=== PATIENT | female | born 1970 | race Caucasian/White ===

== ENCOUNTER 2018-04-06 10:01 | Inpatient (IN) | payer BC, OTHER ==
[~2018-04-06] VITALS: Ht 170.2 cm; Wt 61.7 kg
[2018-04-06 13:47] VITALS: BP 111/57
[2018-04-06 14:14] LABS: *AMPHETAMINE, URINE NEGATIVE (NEGATIVE); *BARBITURATE, URINE NEGATIVE (NEGATIVE); *CANNABINOID, URINE NEGATIVE (NEGATIVE); *COCCAINE, URINE NEGATIVE (NEGATIVE); *OPIATE, URINE NEGATIVE (NEGATIVE); *PHENCYCLIDINE SCREEN,URINE NEGATIVE (NEGATIVE)
[2018-04-06] MEDS ORDERED: DIAZEPAM 10 MG TABLET PO PRN ×2 (15:30)
[2018-04-06] MEDS ORDERED: MAG HYDROX/AL HYDROX/SIMETH 30 ML LIQUID UDC PO PRN (15:30)
[2018-04-06] MEDS ORDERED: ONDANSETRON ODT 4 MG TAB.RAPDIS SL PRN (15:30)
[2018-04-06] MEDS ORDERED: 5 DAY TAPER VALIUM-SERENITY PROTOCOL PO PRN (15:30)
[2018-04-06] MEDS ORDERED: LOPERAMIDE HCL 2 MG CAPSULE PO PRN ×2 (15:30)
[2018-04-06] MEDS ORDERED: THIAMINE HCL 100 MG TABLET PO SCH (15:30)
[2018-04-06] MEDS ORDERED: ONDANSETRON 4 MG/2 ML VIAL IM PRN (15:30)
[2018-04-06] MEDS ORDERED: MAGNESIUM HYDROXIDE 30 ML LIQUID UDC PO PRN (15:30)
[2018-04-06] MEDS ORDERED: CLONIDINE HCL 0.1 MG TABLET PO PRN (15:30)
[2018-04-06] MEDS ORDERED: LORAZEPAM 2 MG/1 ML VIAL IM PRN (15:30)
[2018-04-06] MEDS ORDERED: HYDROXYZINE PAMOATE 25 MG CAPSULE PO PRN (15:30)
[2018-04-06] MEDS ORDERED: THIAMINE HCL 200 MG/2 ML VIAL IM ONE (15:30)
[2018-04-06] MEDS ORDERED: DIAZEPAM 5 MG TABLET PO PRN (15:30)
[2018-04-06 16:00] VITALS: BP 90/46
[2018-04-06] MEDS: MULTIVITAMINS,THERAPEUTIC TABLET PO SCH (16:01)
[2018-04-06] MEDS: FOLIC ACID 1 MG TABLET PO SCH (16:01)
[2018-04-06] MEDS: DIAZEPAM 10 MG TABLET PO SCH ×2 (16:01→20:37)
[2018-04-06 18:48] LABS: BASOPHILS % (AUTO) 0.6 % (0.0-2.0); EOSINOPHILS # (AUTO) 0.1 K/uL (0.0-0.7); EOSINOPHILS % (AUTO) 1.5 % (0.0-7.0); HEMOGLOBIN 12.3 g/dL (10.9-14.3); LYMPHOCYTES # (AUTO) 1.8 K/uL (20.0-40.0); LYMPHOCYTES % (AUTO) 32.2 % (20.5-51.5); MEAN CORPUSCULAR HEMOGLOBIN 34.1 uug (24.7-32.8); MEAN CORPUSCULAR HGB CONC 35 g/dL (32.3-35.6); MEAN CORPUSCULAR VOLUME 97.4 fL (75.5-95.3); MONOCYTES # (AUTO) 0.4 K/uL (2.0-10.0); MONOCYTES % (AUTO) 6.4 % (0.0-11.0); NEUTROPHILS # (AUTO) 3.4 K/uL (1.8-8.9); NEUTROPHILS % (AUTO) 59.3 % (38.5-71.5); PLATELET COUNT (AUTO) 289 K/uL (179-408); WHITE BLOOD COUNT (AUTO) 5.7 K/uL (3.8-11.8)
[2018-04-06 19:04] LABS: ALANINE AMINOTRANSFERASE 22 U/L (14-59); ALKALINE PHOSPHATASE 67 U/L (50-136); AMYLASE 41 U/L (25-115); ASPARTATE AMINOTRANSFERASE 16 U/L (15-37); BILIRUBIN,TOTAL 0.2 mg/dL (0.2-1.0); CARBON DIOXIDE 28 mmol/L (21-32); CHLORIDE 105 mmol/L (98-107); CREATININE 0.4 mg/dL (0.6-1.3); GLUCOSE 90 mg/dL (74-106); LIPASE 112 U/L (73-393); MAGNESIUM 1.8 mg/dL (1.8-2.4); POTASSIUM 3.4 mmol/L (3.5-5.1); TOTAL PROTEIN, SERUM 6.8 g/dL (6.4-8.2); UREA NITROGEN, BLOOD 7 mg/dL (7-18)
[2018-04-06 19:07] LABS: ETHANOL 66 MG/DL (0-0)
[2018-04-06 19:15] LABS: THYROID STIMULATING HORMONE 1.243 mIU/mL (0.358-3.740)
[2018-04-06 20:00] VITALS: BP 102/56
[2018-04-06] MEDS: diphenhydrAMINE 50 MG CAPSULE PO PRN (20:41)
[2018-04-06] MEDS ORDERED: POTASSIUM CHLORIDE 20 MEQ TAB.PRT.SR PO ONE (21:00)
[2018-04-07] VITALS: BP 94/54
[2018-04-07 04:00] VITALS: BP 98/56
[2018-04-07 08:00] VITALS: BP 101/60
[2018-04-07 08:05] LABS: *URINE HCG, QUAL NEGATIVE (NEGATIVE)
[2018-04-07] MEDS ORDERED: TUBERCULIN,PURIF.PROT.DERIV. 5 TU/0.1 ML TEST ID ONE (09:00)
[2018-04-07] MEDS: FOLIC ACID 1 MG TABLET PO SCH (09:26)
[2018-04-07] MEDS: MULTIVITAMINS,THERAPEUTIC TABLET PO SCH (09:26)
[2018-04-07] MEDS: THIAMINE HCL 100 MG TABLET PO SCH (09:26)
[2018-04-07] MEDS: DIAZEPAM 5 MG TABLET PO SCH ×4 (09:26→20:23)
[2018-04-07 12:00] VITALS: BP 116/60
[2018-04-07 16:00] VITALS: BP 123/66
[2018-04-07 20:05] VITALS: BP 129/68
[2018-04-07] MEDS: diphenhydrAMINE 50 MG CAPSULE PO PRN (20:23)
[2018-04-08 07:10] LABS: ALANINE AMINOTRANSFERASE 21 U/L (14-59); ALKALINE PHOSPHATASE 68 U/L (50-136); ASPARTATE AMINOTRANSFERASE 19 U/L (15-37); BILIRUBIN,TOTAL 0.6 mg/dL (0.2-1.0); CARBON DIOXIDE 29 mmol/L (21-32); CHLORIDE 105 mmol/L (98-107); CREATININE 0.5 mg/dL (0.6-1.3); GLUCOSE 95 mg/dL (74-106); POTASSIUM 5.1 mmol/L (3.5-5.1); TOTAL PROTEIN, SERUM 6.9 g/dL (6.4-8.2); UREA NITROGEN, BLOOD 13 mg/dL (7-18)
[2018-04-08 08:00] VITALS: BP 104/57
[2018-04-08 08:06] LABS: HEPATITIS B SURFACE AG Negative (Negative)
[2018-04-08] MEDS: DIAZEPAM 5 MG TABLET PO SCH ×3 (09:13→21:05)
[2018-04-08] MEDS: THIAMINE HCL 100 MG TABLET PO SCH (09:14)
[2018-04-08] MEDS: FOLIC ACID 1 MG TABLET PO SCH (09:14)
[2018-04-08] MEDS: MULTIVITAMINS,THERAPEUTIC TABLET PO SCH (09:14)
[2018-04-08] MEDS: IBUPROFEN 600 MG TABLET PO PRN (09:16)
[2018-04-08 12:00] VITALS: BP 110/46
[2018-04-08 16:00] VITALS: BP 105/56
[2018-04-08 20:00] VITALS: BP 105/60
[2018-04-08] MEDS: diphenhydrAMINE 50 MG CAPSULE PO PRN (21:04)
[2018-04-09 08:28] VITALS: BP 113/65
[2018-04-09] MEDS: FOLIC ACID 1 MG TABLET PO SCH (08:29)
[2018-04-09] MEDS: THIAMINE HCL 100 MG TABLET PO SCH (08:29)
[2018-04-09] MEDS: DIAZEPAM 5 MG TABLET PO SCH ×2 (08:29→20:34)
[2018-04-09] MEDS: MULTIVITAMINS,THERAPEUTIC TABLET PO SCH (08:29)
[2018-04-09 12:46] VITALS: BP 108/65
[2018-04-09 17:07] VITALS: BP 108/59
[2018-04-09 20:00] VITALS: BP 124/62
[2018-04-09] MEDS: diphenhydrAMINE 50 MG CAPSULE PO PRN (20:35)
[2018-04-10] MEDS ORDERED: DIAZEPAM 5 MG TABLET PO SCH (09:00)
[2018-04-10 09:02] VITALS: BP 111/62
[2018-04-10] MEDS: THIAMINE HCL 100 MG TABLET PO SCH (09:03)
[2018-04-10] MEDS: FOLIC ACID 1 MG TABLET PO SCH (09:03)
[2018-04-10] MEDS: MULTIVITAMINS,THERAPEUTIC TABLET PO SCH (09:03)
[2018-04-10 12:38] VITALS: BP 113/63
[2018-04-10] MEDS ORDERED: HYDR-3895 PO (14:43)
[2018-04-10] MEDS ORDERED: CLON0.1T14 PO (14:43)
[2018-04-10 17:16] VITALS: BP 118/62
[2018-04-10 20:00] VITALS: BP 131/62
[2018-04-10] MEDS: diphenhydrAMINE 50 MG CAPSULE PO PRN (21:09)
[2018-04-11] MEDS: IBUPROFEN 600 MG TABLET PO PRN (00:22)
[2018-04-11 09:01] VITALS: BP 130/71
[2018-04-11] MEDS: FOLIC ACID 1 MG TABLET PO SCH (09:32)
[2018-04-11] MEDS: MULTIVITAMINS,THERAPEUTIC TABLET PO SCH (09:32)
[2018-04-11] MEDS: THIAMINE HCL 100 MG TABLET PO SCH (09:33)
== END 2018-04-11 09:43 | disposition home or self-care (01) | DRG 895 ==
LOC: SRC 13:25
PROVIDERS: ADMIT Family Medicine Addiction Medicine; ATTEND Family Medicine Addiction Medicine
PROC: HZ2ZZZZ Detoxification Services for Substance Abuse Treatment (ICD-10-PCS; principal; 2018-04-06)
PROC: HZ41ZZZ Group Counseling for Substance Abuse Treatment, Behavioral (ICD-10-PCS; 2018-04-07)
PROC: HZ31ZZZ Individual Counseling for Substance Abuse Treatment, Behavioral (ICD-10-PCS; 2018-04-07)
DX: F10.230 Alcohol dependence with withdrawal, uncomplicated (principal); F13.230 Sedative, hypnotic or anxiolytic dependence with withdrawal, uncomplicated; Y90.3 Blood alcohol level of 60-79 mg/100 ml; F31.9 Bipolar disorder, unspecified; F41.1 Generalized anxiety disorder; Z81.1 Family history of alcohol abuse and dependence; Z83.3 Family history of diabetes mellitus; Z80.9 Family history of malignant neoplasm, unspecified; Z63.9 Problem related to primary support group, unspecified
CPT/HCPCS: 36415; 70030-TC; 80307; 83690; 83735; 84443; 84703; 85025; 86580; 86592; 86705; 86803; 87340; 87806; A4663; G0480; J3411; Q0162; Q0163